=== PATIENT | female | born 1990 | race Caucasian/White ===

== ENCOUNTER 2017-01-24 23:33 | Inpatient (IN) ==
--- NOTE | 2017-01-24 23:56 | ED EKG INTERP ---
EKG Interpretation - EKG Time of EKG reading by physician:: 23:52 EKG Read and Signed by:: Laura Zuniga Jr EKG Interpretation (*Must complete 3 of following elements*): Abnormal ( Possible L atrial enlargement; Inferior infarct, age undetermined) Rate: 130 Rhythm: Sinus tachycardia Attestation - Scribe Verification/Attestation Scribe:: Evaristo Richey Acting as Scribe for:: Laura Zuniga Jr Scribe documention review:: This chart was documented by a scribe and accurately reflects the service the provider performed and the decisions made by the provider.
[2017-01-25] MEDS ORDERED: ZOFRAN ODT ONE (00:43)
[2017-01-25] MEDS ORDERED: ZOFRAN ODT PO ONE (00:43)
[2017-01-25 01:00] LABS: MANUAL DIFF NEEDED? NO
[2017-01-25 01:02] LABS: BASO% 0.1 % (0.0-0.8); EOS# 0.15 X1000 (0.0-0.7); EOS% 1.5 % (0.0-10.0); HEMATOCRIT 42.7 % (37.0-47.0); HEMOGLOBIN 14.2 g/dL (12.0-16.0); IMM GRAN# 0.03 X1000 (0.0-0.04); IMM GRAN% 0.3 % (0.0-0.5); LYMPH% 26.4 % (20.5-51.1); MCH 29.5 PG (27-31); MCHC 33.3 g/dL (33-37); MCV 88.8 FL (81-99); MONO# 0.97 X1000 (0.11-0.59); MONO% 9.9 % (1.7-9.3); MPV 10.4 FL (7.4-10.4); NEUT% 61.8 % (42.2-75.2); PLT 266 X1000 (130-400); RBC 4.81 XMIL (4.2-5.4)
--- NOTE | 2017-01-25 01:05 | PROVIDER DOCUMENTATION ---
HPI-General Adult <Laura Zuniga Jr - Last Filed: 01/25/17 01:43> - General Source: patient - History of Present Illness -Gen Adult Nature of Presenting Problems: Pt is a 26 yof who presents to ER with CC of L foot numbness with onset of 1600. Pt has hx of M.S. and reports that it started as just 1 toe on her L foot become numb, but then her whole foot became numb and she started to experience the "zaal-bic-scbxvry" sensation. Pt also complains of a headache. No further complaints. Location of Pain/Injury: reports: feet (L foot) Pain Radiation: reports: no radiation Quality of Pain: reports: other (numb/[id number]) Severity: reports: moderate Onset/Duration: reports: this afternoon (1600) Timing: reports: still present Context/Activities at Onset: reports: light activity Associated Symptoms: reports: headaches, muscle aches, sensory/motor loss, weakness, trouble walking. denies: anxiety, arm pain, back/neck pain, chest pain, constipation, cough, diaphoresis, diarrhea, dizziness, EENT symptoms, fatigue, fever/chills, genitourinary problems, heartburn, joint pain, loss of appetite, malaise, sinus congestion/drainage, nausea, rash, seizure, shortness of breath, pain with inspiration, swelling/mass in abdomen, syncope, vomiting <Evaristo Richey - Last Filed: 01/25/17 02:33> - General Chief Complaint: Extremity Pain Stated Complaint: LT FT/LEG NUMBNESS Time Seen by Provider: 01/25/17 00:10 Allergies/Adverse Reactions: Patient Allergies Allergy/AdvReac Type Severity Reaction Status Date / Time Sulfa (Sulfonamide Allergy ANAPHYLAXIS Verified 01/25/17 00:23 Antibiotics) Home Medications: Home Medication List Medication Instructions Recorded Confirmed Last Taken Type Dextroamphetamine/Amphetamine 5 mg PO 4XDAY 01/25/17 01/25/17 01/24/17 21:00 History [Adderall 5 mg Tablet] Divalproex E.r. [Depakote ER] 1,000 mg PO QHS 01/25/17 01/25/17 01/24/17 21:00 History Interferon Beta-1B [Betaseron] 25 mcg IM EVERY OTHER DAY 01/25/17 01/25/1701/2417 08:00 History Lacosamide [Vimpat] 200 mg PO BID 01/25/17 01/25/17 01/24/17 21:00 History Levetiracetam [Keppra] 2,000 mg PO DAILY 01/25/17 01/25/17 01/24/17 08:00 History Tolterodine [Detrol] 2 mg PO DAILY 01/25/17 01/25/17 01/24/17 08:00 History Review of Systems - Adult - REVIEW OF SYSTEMS - ADULT Constitutional: denies: chills, fever, fatique, night sweats, weight gain, weight loss Eyes: reports: no symptoms reported Ears, Nose, Mouth & Throat: reports: no symptoms reported Cardiovascular: reports: no symptoms reported Respiratory: reports: no symptoms reported Gastrointestinal: reports: no symptoms reported Genitourinary: reports: no symptoms reported Musculoskeletal: reports: no symptoms reported Integumentary: denies: hives, hair loss, itching, mole changes, nail changes, rash, skin sores/ulcer, skin thickening Neurological: reports: numbness, paresthesia. denies: ataxia, dizziness/vertigo , headache/migraines, loss of balance, seizure, slurred speech, syncope, tremors Psychiatric: reports: no symptoms reported Endocrine: reports: no symptoms reported Hematologic/Lymphatic: reports: no symptoms reported Allergic/Immunologic: reports: no symptoms reported All Other Systems: Reviewed and Negative <Evaristo Richey - Last Filed: 01/25/17 02:33> Past History - Adult - PAST MEDICAL HISTORY-ADULT Review of Records: reports: Nursing Assessment Review, Medications Reviewed Neurological: reports: Multiple Sclerosis - IMMUNIZATION STATUS Childhood Immunizations: See Nurse Assessment Flu Vaccine: See Nurse Assessment <Evaristo Richey - Last Filed: 01/25/17 02:33> Physical Exam-General - PHYSICAL EXAM-ADULT Initial Vital Signs Reviewed: Yes - CONSTITUTIONAL General Appearance: appears well, alert, moderate distress, obese. negative: thin, anxious, lethargic, slow to respond, obtunded, combative - HEAD, EARS, NOSE, MOUTH & THROAT HENMT: normocephalic/atraumatic, moist mucous membranes, normal ENT inspection, TMs normal, pharynx normal. negative: pharyngeal erythema, tonsillar exudate, TM abnormal - NECK Neck: non-tender, full range of motion, supple. negative: C-spine tenderness, limited range of motion, lymphadenopathy - RESPIRATORY Respiratory: chest non-tender, lungs clear, normal breath sounds. negative: respiratory distress, decreased breath sounds, accessory muscle use, wheezing - CARDIOVASCULAR Cardiovascular: normal peripheral pulses, regular rate, rhythm. negative: bradycardia, tachycardia, irregularly irregular - LYMPHATIC Lymphatic: no adenopathy. negative: axilla node tender, cervical node tenderness, inguinal node tender - MUSCULOSKELETAL Back Exam: no CVA tenderness, no vertebral tenderness. negative: CVA tenderness , decreased range of motion, muscle spasm, swelling, vertebral tenderness Extremity: normal range of motion, non-tender, normal gait. negative: deformity , erythema, inflammation, pedal edema, slow capillary refill, swelling, tenderness - SKIN Integumentary: normal color, normal turgor, warm/dry. negative: abrasion(s), laceration(s), swelling, tenderness, warm - NEUROLOGIC Neurologic: grossly normal, sensory deficit (LLE). negative: no motor/sensory deficits, facial droop, focal weakness, motor weakness - PSYCHIATRIC Psych/Mental Status: normal mood/affect, normal thought content, normal thought process, oriented x 3 <Evaristo Richey - Last Filed: 01/25/17 02:33> Progress - PLAN OF CARE/RESULTS Progress/Plan/Lab Results: Vital Signs - 24 hr 01/24/17 23:41 Temperature 98.9 F Pulse Rate 143 H Respiratory 16 Rate Blood Pressure 141/99 O2 Sat by Pulse 100 Oximetry Orders Category Date Time Status ED: Urine Bedside ORDERED Care 01/25/17 01:03 Active HEAD W/O CONTRAST [CT] Stat Exams 01/25/17 00:52 Ordered CBC WITH ELECTRONIC DIFF [HEME] Stat Lab 01/25/17 00:54 Completed COMPREHENSIVE METABOLIC PANEL [CHEM] Stat Lab 01/25/17 00:54 Received Ondansetron Odt [Zofran Odt] Med 01/25/17 00:43 Discontinued 4 mg .ROUTE .STK-MED ONE Ondansetron Odt [Zofran Odt] Med 01/25/17 00:43 Discontinued 4 mg PO NOW ONE EKG [EKG] Stat Ther 01/24/17 23:44 Ordered Laboratory Tests 01/25/17 01/25/17 00:54 00:54 WBC 9.84 RBC 4.81 Hgb 14.2 Hct 42.7 MCV 88.8 MCH 29.5 MCHC 33.3 RDW Std Deviation 16.2 H Plt Count 266 MPV 10.4 Immature Gran % (Auto) 0.3 Neut % (Auto) 61.8 Lymph % (Auto) 26.4 Perkins % (Auto) 9.9 H Eos % (Auto) 1.5 Baso % (Auto) 0.1 Immature Gran # (Auto) 0.03 Neut # (Auto) 6.08 Lymph # (Auto) 2.60 Perkins # (Auto) 0.97 H Eos # (Auto) 0.15 Baso # (Auto) 0.01 Sodium 144 Potassium 4.0 Chloride 106 Carbon Dioxide 24 L Anion Gap 14 BUN 13 Creatinine 0.9 Estimated GFR/1.73 m2 > 60 BUN/Creatinine Ratio 14 Glucose 111 H Calculated Osmolality 288 Calcium 9.9 Total Bilirubin 0.19 L AST 19 ALT 53 H Alkaline Phosphatase 104 Total Protein 6.9 Albumin 4.1 Globulin 2.8 Albumin/Globulin Ratio 1.5 - CT/MRI 1 CT Study: Head Impression: See EMR Report (No intracranial mass, midline shift, hydrocephalus, or acute hemorrhage. Visualizedparanasal sinuses and mastoid air cells normal. Orbits unremarkable. No skull fx) CT Results: Normal noncontrast head CT <Evaristo Richey - Last Filed: 01/25/17 02:33> Departure - Departure Time of Disposition Order: 01:43 Certified Medical Emergency: Emergent <Laura Zuniga Jr - Last Filed: 01/25/17 01:43> - Departure Time of Disposition Order: 02:33 <Evaristo Richey - Last Filed: 01/25/17 02:33> - Departure DIAGNOSIS: Exacerbation of multiple sclerosis Disposition: ADMITTED INPATIENT 09 Condition: Good Referrals: None,PCP [Primary Care Provider] - Attestation - Scribe Verification/Attestation Scribe:: Evaristo Richey Acting as Scribe for:: Laura Zuniga Jr Scribe documention review:: This chart was documented by a scribe and accurately reflects the service the provider performed and the decisions made by the provider. <Evaristo Richey - Last Filed: 01/25/17 02:33> Physician Attestation
[2017-01-25 01:12] LABS: AGAP 14; ALBUMIN 4.1 g/dL (3.5-5.0); ALKALINE PHOSPHATASE 104 U/L (32-104); BUN 13 mg/dL (8-22); CALCIUM 9.9 mg/dL (8.8-10.2); CHLORIDE 106 mmol/L (98-107); COSMO 288; GOT 19 U/L (10-30); GPT 53 U/L (10-36); SODIUM 144 mmol/L (136-145); TCO2 24 mmol/L (25-35); TOTAL BILIRUBIN 0.19 mg/dL (0.20-1.00); TOTAL PROTEIN 6.9 g/dL (6.3-8.3)
[2017-01-25] MEDS ORDERED: ZOFRAN ONE (01:38)
[2017-01-25] MEDS ORDERED: MORPHINE IV ONE (01:43)
[2017-01-25] MEDS ORDERED: ZOFRAN IV ONE (01:43)
[2017-01-25] MEDS ORDERED: MORPHINE IV PRN (01:45)
[2017-01-25] MEDS ORDERED: DILAUDID IV ONE (02:34)
[2017-01-25] MEDS ORDERED: SOLU-MEDROL 1,000 MG in NS 100 ML IV SCH (03:00)
[2017-01-25] MEDS: ZOFRAN IV PRN ×4 (03:36→19:43)
--- NOTE | 2017-01-25 05:16 | HISTORY AND PHYSICAL ---
CHIEF COMPLAINT: Left foot numbness. HISTORY OF PRESENTING ILLNESS: This 26-year-old female with a history of multiple sclerosis. Had presented to the emergency department with a 1-day history of having left foot numbness. She states that she could not feel her foot and seemed to be similar to an exacerbation that she had about a month ago where she was hospitalized at [facility]. Patient is apparently seeing a physician, Dr. Travis of Neurology, who is treating her multiple sclerosis. The patient is evaluated in the ER and due to her presenting symptoms, it was thought that she would need hospitalization for further management. At the time of my examination, she denied any nausea, vomiting, diarrhea, fever, chills, chest pain, shortness of breath, hemoptysis, melena, weight changes, but complained of left foot numbness and headache. PAST MEDICAL HISTORY: Includes PTSD, pseudotumor cerebri, and multiple sclerosis. PAST SURGICAL HISTORY: None. ALLERGIES: Sulfa. CURRENT MEDICATIONS: As in the MAR. SOCIAL HISTORY: She denies any history of smoking. Admits to social alcohol use. Denies any illicit drug use. FAMILY HISTORY: No history of coronary disease. REVIEW OF SYSTEMS: Twelve point systems reviewed and is as in the history of present illness. Other systems negative. PHYSICAL EXAMINATION: GENERAL: Cooperative, friendly female. She is resting comfortably now. VITAL SIGNS: Temperature 98.9 degrees, pulse 142, respiration 16, blood pressure 141/99. HEENT: Atraumatic, normocephalic. Extraocular movements intact. Pupils equal, round, reactive to light and accommodation. NECK: Supple. CHEST: Clear to auscultation. CARDIOVASCULAR: Regular rhythm. ABDOMEN: Soft, nontender. Positive bowel sounds. EXTREMITIES: No edema. NEUROLOGICAL: She is awake, alert, oriented x3. Strength 4/5 in the left lower extremity, 5/5 in all extremities. GENITOURINARY: No bladder distention. SKIN: Warm. LABORATORIES AND STUDIES: WBC 9.84, hemoglobin 14.2, hematocrit 42.7, platelets 266,000. Sodium 144, potassium 4.0, chloride 106, CO2 24, BUN is 13, creatinine 0.9, glucose is 111. ASSESSMENT: A 26-year-old female with a history of multiple sclerosis, who presents to the emergency department with 1-day history of having left foot numbness. Patient's symptoms consistent with possible multiple sclerosis exacerbation. She will need hospitalization for further management. 1. Acute multiple sclerosis exacerbation. PLAN: 1. We will admit patient to medical floor. 2. We will start patient on Solu-Medrol 1000 mg IV. 3. We will consult Neurology. 4. We will continue to follow and reassess.
--- NOTE | 2017-01-25 05:44 | EKG Report ---
Test Performed on : 01/24/2017 11:50:41 PM Test Reason : TACHYCARDIA Blood Pressure : / mmHG Vent. Rate : 130 BPM Atrial Rate : 130 BPM P-R Int : 144 ms QRS Dur : 078 ms QT Int : 292 ms P-R-T Axes : 044 -02 025 degrees QTc Int : 429 ms Sinus tachycardia. Possible Left atrial enlargement Inferior infarct , age undetermined Abnormal ECG No previous ECGs available Unconfirmed Result
[2017-01-25] MEDS ORDERED: DILAUDID IV PRN (06:10)
--- NOTE | 2017-01-25 08:03 | Diag Imaging Result Document ---
PROCEDURE NAME: HEAD W/O CONTRAST - 01/25/2017 CT HEAD WITHOUT CONTRAST: TECHNIQUE: A dose reduction protocol was used. No comparison exam. FINDINGS: There is no evidence of hemorrhage, mass effect, midline shift, or hydrocephalus. There is mild ventricular asymmetry compatible with normal variation. There is no evidence of infarct although acute infarcts may not be immediately visible. Visualized portions of paranasal sinuses appear clear. IMPRESSION: No visible acute intracranial abnormality. No hemorrhage or mass effect. A Real [facility] physician provided preliminary results at 1:32 a.m. on 01/25/2017.
[2017-01-25] MEDS ORDERED: SOLU-MEDROL IV SCH (09:00)
[2017-01-25] MEDS: DILAUDID IV PRN ×4 (10:35→23:50)
[2017-01-25] MEDS: NORCO-5 PO PRN ×2 (12:19→19:43)
--- NOTE | 2017-01-25 13:38 | CONSULTATION ---
DATE OF CONSULTATION: 01/25/2017 HISTORY OF PRESENT ILLNESS: Ms. Lorenzo is 26 years old, and she has diagnosis of multiple sclerosis. History from the patient with no corroborating documents is that she had left- sided weakness involving leg more than arm a few months ago. She was treated with IV steroids last month and was improved. She had an oral steroid dose for about 2 weeks after that, and finished her oral prednisone about 2 weeks ago. As she was regaining left- sided power, following completion of the course of IV steroids, she noticed gradually improving strength in the left limbs, and then she noticed numbness involving the left great toe. That numbness persisted. Yesterday, very abruptly, in a matter of seconds, she noticed numbness involving the entire left foot. That has persisted since yesterday. She did not notice definite increased left-sided weakness associated with the recent numbness. She has had some urinary urgency and frequency and occasional bladder accidents. She has not had significant right-sided symptoms. She has not noticed any vision problems, speech difficulty, swallowing difficulty. She had workup and diagnosis of MS. I do not have those records. She started Betaseron about a month ago, by her report, and she has tolerated that. She specifically denies significant depression. She completed her oral steroids a few weeks ago as mentioned above. OTHER MEDICINES: Levetiracetam, Vimpat, divalproex, Detrol, Adderall. WORKUP: Workup here includes noncontrast CT of the head reported unremarkable. She has been afebrile. Systolic blood pressures ranged 120s to 140s. PHYSICAL EXAMINATION: General: On exam, Ms. Lorenzo is awake, alert, attentive. She seems appropriate. She has good power consistently in the right limbs. She demonstrates inconsistent power in testing the left limbs. She was able to show almost no power in voluntary left foot dorsiflexion and plantar flexion initially, but with repeated testing and distraction, she eventually showed at least 4/5 power there. She did well on [id number]-in-[id number] testing bilaterally. She reports diminished pinprick appreciation over the left foot in a mostly stocking pattern, but the deficit may be a little bit greater along the medial aspect of the lower leg compared to the lateral aspect. She has a more minor deficit to pinprick appreciation over the entire left trunk, arm, proximal leg, extending to about the neck. She reports complete absence of proprioception at the left great toe, even when I move her toe enough to move her entire leg and the bed moves. She has good proprioception in the right great toe. I did not test her gait. Reflexes are 2+ at the ankles and knees symmetrically. Plantar response is silent bilaterally. She has full visual vallejo tested by confrontational finger counting. Extraocular movements are full. Facial motility is symmetric. Gag is intact. Tongue is midline. She can hear. IMPRESSION: Subjective left lower leg numbness, less prominent left limb and trunk numbness. The findings on motor exam are too equivocal to be certain. I do not have report of previous MRI. She has started a course of intravenous steroids here with methylprednisolone 1000 mg daily, first dose overnight, and she has tolerated that. I encouraged her to get better and I hope she will be able to get back to see Dr. Root in his office soon. She reports she has an appointment there within a month. Thanks for asking me to see Ms. Lorenzo. [facility]
[2017-01-25] MEDS: HUMULIN R SUBQ SCH ×2 (16:54→20:54)
[2017-01-25] MEDS: KEPPRA XR PO SCH (20:52)
[2017-01-25] MEDS: SOLU-MEDROL 1,000 MG in NS 100 ML IV SCH (20:53)
[2017-01-25] MEDS: DEPAKOTE ER PO SCH (20:53)
[2017-01-25] MEDS: VIMPAT PO SCH (20:53)
[2017-01-26] MEDS: ZANAFLEX PO SCH ×2 (00:19→07:18)
[2017-01-26] MEDS: ZOFRAN IV PRN ×3 (05:10→17:51)
[2017-01-26] MEDS: DILAUDID IV PRN ×3 (05:10→17:51)
[2017-01-26] MEDS: HUMULIN R SUBQ SCH ×4 (07:18→23:34)
[2017-01-26 07:28] LABS: BASO% 0.1 % (0.0-0.8); HEMATOCRIT 36.2 % (37.0-47.0); HEMOGLOBIN 12.3 g/dL (12.0-16.0); IMM GRAN# 0.04 X1000 (0.0-0.04); IMM GRAN% 0.3 % (0.0-0.5); LYMPH# 1.26 X1000 (1.2-3.4); LYMPH% 8.2 % (20.5-51.1); MANUAL DIFF NEEDED? YES; MCH 29.9 PG (27-31); MCV 88.1 FL (81-99); MONO# 0.26 X1000 (0.11-0.59); MONO% 1.7 % (1.7-9.3); MPV 10.9 FL (7.4-10.4); NEUT% 89.7 % (42.2-75.2); PLT 244 X1000 (130-400); RBC 4.11 XMIL (4.2-5.4)
[2017-01-26 07:29] LABS: AGAP 14; ALBUMIN 3.4 g/dL (3.5-5.0); ALKALINE PHOSPHATASE 89 U/L (32-104); BUN 15 mg/dL (8-22); CALCIUM 9.4 mg/dL (8.8-10.2); CHLORIDE 103 mmol/L (98-107); COSMO 285; GOT 9 U/L (10-30); GPT 33 U/L (10-36); POTASSIUM 4.3 mmol/L (3.5-5.1); SODIUM 140 mmol/L (136-145); TCO2 23 mmol/L (25-35); TOTAL BILIRUBIN 0.21 mg/dL (0.20-1.00); TOTAL PROTEIN 5.8 g/dL (6.3-8.3)
[2017-01-26 08:06] LABS: BANDS 4 % (0-1); LYMPHS 14 % (21-51)
[2017-01-26] MEDS: NORCO-5 PO PRN ×2 (08:35→20:53)
[2017-01-26] MEDS: DETROL PO SCH (08:36)
[2017-01-26] MEDS: VIMPAT PO SCH ×2 (08:40→20:53)
[2017-01-26] MEDS ORDERED: PATIENT'S OWN MED IM SCH (09:00)
--- NOTE | 2017-01-26 09:24 | PROGRESS NOTE ---
DATE: 01/26/2017 Ms. Lorenzo reports no significant improvement but she is certain nothing is any worse today. She continues to report numbness in the left foot. I did not examine her at the bedside today. She has received 2 doses of IV Solu-Medrol and has tolerated that. She reports having significant clinical response to IV Solu-Medrol last month and we hope she will do well this time. No new suggestion from neurologic standpoint. As long as she is clinically stable and improving, no need to repeat neurologic work up which has been recent and extensive. [facility]
[2017-01-26] MEDS ORDERED: ATIVAN IV ONE (10:21)
--- NOTE | 2017-01-26 11:02 | PROGRESS NOTE ---
DATE: 01/26/2017 SUBJECTIVE: Ms. Lorenzo is a 26-year-old, female. She was currently sleeping when entering the room. She awoke easily. She states that the pain is better. She is still having a good bit of cramping in her left thigh, left calf. States that the numbness is now only in her foot. She can feel that she is starting to have an improvement. Reviewing her pain medication administration, it seems that she did take Starford about 8:30 and Dilaudid around 5:10 this morning. It does appear that she is taking Dilaudid every 6 hours. We will consider decreasing the pain medication administration. She states no issues with bowel or bladder control. No other issues with numbness in the left arm or left face. No new complaints. OBJECTIVE: Vital Signs: Temperature 98.3 degrees, heart rate 91, respiratory rate 22, blood pressure 138/79, O2 saturation 94% on room air. General: Ms. Lorenzo is a 26- year-old, female in no acute distress. Able to answer all questions appropriately. Cardiovascular: S1, S2. Regular rate and rhythm. No rubs, gallops, or murmurs. Pulmonary: Clear to auscultate bilateral breath sounds. No accessory muscle use or work of breathing noted. GI: Soft, nontender, nondistended. Positive bowel sounds x4. Extremities: Numbness in the left foot. There are +2 dorsalis pedal pulses and radial pulses. Neurologic: A and O x4. Moves all extremities equally. Laboratory Data: White blood cells, 15,000, hemoglobin 12, hematocrit 36, platelet count 244,000. Sodium 140, potassium 4.3, BUN 15, creatinine 0.8, glucose 178, calcium 9.4, phosphorus 3.1, magnesium 2. Total bilirubin 0.21, AST 9, ALT 33, albumin 3.4. TSH 0.03. Imaging: MRI with and without contrast has been ordered of the spine and brain for lesions of multiple sclerosis. ASSESSMENT AND PLAN: 1. Multiple sclerosis with exacerbation. Symptoms are improving. She is getting daily doses of high-dose Solu-Medrol which seems to be helping with symptoms. She still had some symptoms of numbness in the left foot and cramps in her legs but the pain is improving, although she is taking as needed medications as if they were scheduled. Neurology is following. MRI is pending. 2. Leukocytosis. This is reactive secondary to high-dose steroid administration. 3. Hyperglycemia. She does not have a history of diabetes so this is secondary to the high dose administration of Solu-Medrol. She is getting patterned blood glucoses and sliding scale insulin. We will order a hemoglobin A1c for in the morning. 4. TSH is low. We will order a T4. 5. Deep venous thrombosis prophylaxis, sequential compression devices. 6. Gastrointestinal prophylaxis. We will add a proton pump inhibitor. Dictated by MARGARITA Galeas for Lawrence Ybarra MD Addendum: I have evaluated and examined the patient in conjunction to the [facility] and agreed with her assessments and plans. [facility]
[2017-01-26] MEDS: ROBAXIN PO SCH ×2 (12:11→18:56)
--- NOTE | 2017-01-26 16:50 | Diag Imaging Result Document ---
PROCEDURE NAME: MRI BRAIN W W/O CONTRAST - 01/25/2017 MRI BRAIN WITHOUT AND WITH INTRAVENOUS CONTRAST: COMPARISON: Head CT, 01/25/2017. FINDINGS: There is no restricted diffusion. The ventricles and sulci are normal in size and contour. No intracranial mass or hemorrhage. No area of abnormal signal. No abnormal contrast enhancement. IMPRESSION: Negative exam.
--- NOTE | 2017-01-26 16:50 | Diag Imaging Result Document ---
PROCEDURE NAME: MRI C SPINE W/WO CONTRAST - 01/26/2017 MRI CERVICAL SPINE WITHOUT AND WITH INTRAVENOUS CONTRAST: COMPARISON: None. FINDINGS: Alignment is anatomic. Vertebral body heights and intervertebral disk spaces are preserved. The brainstem and cervical cord are normal. No abnormal signal. No abnormal contrast enhancement. IMPRESSION: Negative exam.
--- NOTE | 2017-01-26 16:51 | Diag Imaging Result Document ---
PROCEDURE NAME: MRI THORACIC SPINE W/WO CONTR - 01/26/2017 MRI THORACIC SPINE WITHOUT AND WITH INTRAVENOUS CONTRAST: COMPARISON: None. FINDINGS: Alignment is anatomic. No fracture or subluxation. The thoracic cord is normal. No abnormal signal. No abnormal contrast enhancement. IMPRESSION: Negative exam.
--- NOTE | 2017-01-26 16:54 | Diag Imaging Result Document ---
PROCEDURE NAME: MRI LUMBAR SPINE W/WO CONTRAST - 01/26/2017 MRI LUMBAR SPINE WITHOUT AND WITH INTRAVENOUS CONTRAST: COMPARISON: None. FINDINGS: Alignment is anatomic. No fracture or subluxation. The conus is normal. No abnormal contrast enhancement. No abnormal signal. IMPRESSION: Negative exam.
[2017-01-26] MEDS: DEPAKOTE ER PO SCH (20:53)
[2017-01-26] MEDS: SOLU-MEDROL 1,000 MG in NS 100 ML IV SCH (20:54)
[2017-01-26] MEDS: KEPPRA XR PO SCH (21:12)
[2017-01-26] MEDS ORDERED: DILAUDID IV ONE (21:30)
[2017-01-27] MEDS: DILAUDID IV PRN ×3 (00:54→13:58)
[2017-01-27] MEDS: ZOFRAN IV PRN ×2 (00:58→13:59)
[2017-01-27] MEDS: PRILOSEC PO SCH ×2 (04:01→06:17)
[2017-01-27] MEDS: NORCO-5 PO PRN ×3 (04:01→15:49)
[2017-01-27] MEDS: HUMULIN R SUBQ SCH ×2 (06:17→12:55)
[2017-01-27 07:15] LABS: HEMATOCRIT 36.8 % (37.0-47.0); IMM GRAN# 0.05 X1000 (0.0-0.04); IMM GRAN% 0.3 % (0.0-0.5); LYMPH% 5.4 % (20.5-51.1); MANUAL DIFF NEEDED? YES; MCH 29.1 PG (27-31); MCHC 32.6 g/dL (33-37); MCV 89.1 FL (81-99); MONO# 0.33 X1000 (0.11-0.59); MONO% 1.8 % (1.7-9.3); MPV 11.3 FL (7.4-10.4); NEUT% 92.5 % (42.2-75.2); PLT 216 X1000 (130-400); RBC 4.13 XMIL (4.2-5.4)
[2017-01-27 07:18] VITALS: BP 131/94
[2017-01-27 07:19] LABS: AGAP 15; ALBUMIN 3.3 g/dL (3.5-5.0); ALKALINE PHOSPHATASE 90 U/L (32-104); BUN 22 mg/dL (8-22); CALCIUM 9.3 mg/dL (8.8-10.2); CHLORIDE 103 mmol/L (98-107); COSMO 289; GOT 9 U/L (10-30); GPT 27 U/L (10-36); POTASSIUM 4.3 mmol/L (3.5-5.1); SODIUM 141 mmol/L (136-145); TCO2 23 mmol/L (25-35); TOTAL BILIRUBIN 0.16 mg/dL (0.20-1.00); TOTAL PROTEIN 5.6 g/dL (6.3-8.3)
[2017-01-27 07:51] LABS: LYMPHS 10 % (21-51)
--- NOTE | 2017-01-27 09:02 | PROGRESS NOTE ---
DATE: 01/27/2017 PATIENT LOCATION: Room 379B. Ms. Lorenzo is awake and alert. She reports no definite improvement in sensation in the left leg but she has had significant decrease in the uncomfortable tingling in the left leg. She has tolerated IV steroids, 3rd dose given last night. We discussed the possibility that she might complete this course as an outpatient. I encouraged her to be aggressive with her recovery and to be very careful with gait and activities. If not already ordered, we could consider physical therapy here. I told her to be in touch with Dr. Root when she is discharged. No new suggestion from a neurologic standpoint today.
[2017-01-27] MEDS: VIMPAT PO SCH (09:48)
[2017-01-27] MEDS: ROBAXIN PO SCH ×2 (09:48→12:55)
[2017-01-27] MEDS: DETROL PO SCH (09:48)
--- NOTE | 2017-01-27 11:12 | PROGRESS NOTE ---
DATE: 01/27/2017 SUBJECTIVE: Ms. Lorenzo's a 26-year-old, female. She is in no acute distress. She was sleeping with snoring respirations that were normal. Easily awoke. States that she still has numbness in her left foot. Still has pretty significant muscle spasms that come and go. Is requesting something different other than Zanaflex or Robaxin for this. She also wants to discuss her pain medication regimen for when she goes home. She also states that she would like to have a PICC line to be able to manage her on IV steroid dosing at home. Today will be day 4 of 5 doses of IV steroids and she should be able to go home maybe at a later date, she can do IV steroids, but she will need to discuss this with her primary neurologist who manages her multiple sclerosis. OBJECTIVE: Vital Signs: Temperature 97.8, heart rate 78, respiratory rate 18, blood pressure 131/94, O2 saturation 95% on room air. General: Ms. Lorenzo is a 26-year-old, female in no acute distress. Able to answer all questions appropriately. Cardiovascular: S1, S2. Regular rate and rhythm. No rubs, gallops, murmurs. Pulmonary: Clear to auscultation. Bilateral breath sounds. No accessory muscle use or work of breathing noted. GI: Soft, nontender, nondistended. Positive bowel sounds x4. Extremities: Left foot numbness. Muscle spasms throughout the left leg that she complains of. She has got +2 dorsalis pedal pulses. +2 radial pulses. Neuro: A and O x4. Moves all extremities equally. LABORATORY DATA: White blood cells 18,000, hemoglobin 12, hematocrit 36, platelet count 216. Sodium 141, potassium 4.3, BUN 22, creatinine 0.9. Glucose 183. Total bilirubin 0.16. AST 9, ALT 27, albumin 3.3. TSH 0.03. Free T4 is 1.45. IMAGING: MRI of the brain and spine showed negative exam. No significant lesions for MS. ASSESSMENT AND PLAN: 1. Multiple sclerosis with exacerbations. Symptoms are somewhat improving. She is getting high- dose steroids. Today will be day 4 or 5 before she can go home. Still numbness of the left foot with cramps in her left leg, which she is requesting for a change in her muscle relaxant medication. Also wants to discuss pain medication regimen at home and wants to discuss getting IV steroids at home. Her MRI apparently does not show any significant lesions. 2. Leukocytosis. This is reactive secondary to high-dose steroids. She is afebrile. 3. Hyperglycemia. Hemoglobin A1c is normal at 5.0. Will continue sliding scale insulin with pattern blood glucoses while on IV high-dose steroids. 4. Subclinical hyperthyroidism. TSH is low, but her T4 is normal. No treatment for now. 5. Deep venous thrombosis prophylaxis. Sequential compression devices. 6. Gastrointestinal prophylaxis. Proton pump inhibitor. Dictated by MARGARITA Galeas for Lawrence Ybarra MD
[2017-01-27] MEDS ORDERED: SOLU-MEDROL IV ONE (13:47)
[2017-01-27] MEDS ORDERED: SOLU-MEDROL 1,000 MG in NS 100 ML IV ONE (14:00)
--- NOTE | 2017-01-27 18:25 | DISCHARGE SUMMARY ---
ADMISSION DATE: 01/24/2017 DISCHARGE DATE: 01/27/2017 DISCHARGE DIAGNOSES: 1. Questionable multiple sclerosis flare. 2. Chronic pain. 3. Morbid obesity. 4. History of multiple sclerosis. 5. History of seizure. 6. History of attention deficit hyperactivity disorder. DISCHARGE MEDICATIONS: 1. Adderall 5 mg 4 times a day as needed. 2. Depakote 1000 mg at bedtime. 3. Detrol 2 mg p.o. daily. 4. Interferon beta-1b 25 mcg subcutaneous every other day. 5. Keppra 2000 mg p.o. at bedtime. 6. Vimpat 200 mg b.i.d. 7. Ringgold 5 one tablet p.o. every 4 hours as needed for pain. 8. Robaxin 750 one tablet 3 times a day as needed for muscle spasm. CONSULTATION: Neurology was consulted. Dr. Rashid saw the patient and recommended to put the patient on high dose steroid. PROCEDURES: None significant. LABORATORY AND IMAGING: MRI of the of the brain is essentially normal, there is no evidence of white matter disease. MRI of the thoracic spine was also normal. MRI of the lumbar spine was also normal. MRI of cervical spine was also normal. HOSPITAL COURSE: The patient is a 26-year-old, morbidly obese, white female admitted to the hospital for left leg tingling and weakness. The patient reported that she is having a history of MS and been manage by Dr. Root in [place], and is on interferon beta-1b every other day. The patient presented to the hospital with lower extremity tingling and weakness as well as pain. The patient was admitted to the hospital service with Neurology consult, Dr. Rashid, who saw the patient and recommended to put the patient on 1 g of Solu-Medrol daily for 5 days. We finished her 4 doses of Solu-Medrol and the patient adamant about going home. Her main complaint is pain, she is asking for pain medication so she can manage her pain until she has a chance to see her pain doctors in February. From my standpoint, with the MRIs that were normal, will give her only a few days' worth of muscle relaxant and Ringgold. We will give her 1 more dose of Solu-Medrol today and will discharge the patient home. The patient was glad to go home since she is now able to get a prescription for pain medication. I advised the patient to use cautiously, I will not renew any more additional pain medication. PHYSICAL EXAMINATION: Vital Signs: At discharge her vital signs are blood pressure 131/94, pulse of 78, respiration 18, temperature 97.8 degrees, saturations 95% in room air. General appearance: Morbidly obese, white female in no acute distress. HEENT: Anicteric sclerae. Clear conjunctivae. Neck: Supple. No JVD. No bruit. Cardiovascular: S1, S2. Normal rate and rhythm. No murmur, rubs, or gallops. Pulmonary: Clear to auscultation bilaterally. GI: Soft, nontender, nondistended. Normoactive bowel sounds. Musculoskeletal: No clubbing, cyanosis, or edema. PLAN: Wed will discharge the patient home. CONDITION: Stable and improving. ACTIVITY: As tolerated. FOLLOWUP: The patient can follow up with her neurologist in 1-2 weeks. TOTAL TIME DISCHARGING PATIENT: 35 minutes.
== END 2017-01-27 16:23 | disposition home or self-care (01) | DRG 60 ==
LOC: ED 23:33 → DIRADM 23:41 → 3N 01-25 03:57 → UNDOADMIN 01-25 03:57 → 3N 01-25 21:33
PROVIDERS: ATTEND Internal Medicine
DX: G35 Multiple sclerosis (principal); R56.9 Unspecified convulsions; E66.01 Morbid (severe) obesity due to excess calories; E05.90 Thyrotoxicosis, unspecified without thyrotoxic crisis or storm; R73.9 Hyperglycemia, unspecified; D72.829 Elevated white blood cell count, unspecified; T38.0X5A Adverse effect of glucocorticoids and synthetic analogues, initial encounter; G89.29 Other chronic pain; F90.9 Attention-deficit hyperactivity disorder, unspecified type; Z79.899 Other long term (current) drug therapy; Z68.34 Body mass index [BMI] 34.0-34.9, adult
CPT/HCPCS: 36415; 70450; 70553; 72156; 72157; 72158; 80053; 81025; 82948; 83036; 83735; 84100; 84439; 84443; 85025; 93005; 96365; 96375; 96376; A9579; J1170; J2060; J2270; J2405; J2930; 97116-GP

== ENCOUNTER 2017-01-31 21:18 | Inpatient (IN) | payer OTHER ==
--- NOTE | 2017-01-31 22:06 | PROVIDER DOCUMENTATION ---
HPI-General Adult - General Source: patient - History of Present Illness -Gen Adult Nature of Presenting Problems: 26 year old F presents to the ED with a cc of a MS flare up. PT states that she is being treated by Dr. Root in [place]. Pt was admitted to the hospital on and discharge on 01/27 for the same. Pt states that she thought she was getting better but states that it has only got worse. PT states that the Wingate she was prescribed is not helping with her pain. PT also c/o numbness and weakness to left leg and foot. Pt states that she has not been able to follow up with Dr. Root since being discharged. Location of Pain/Injury: reports: lower extremity, feet Pain Radiation: reports: no radiation Severity: reports: mild Onset/Duration: reports: 6 days ago Timing: reports: still present Modifying Factors: improves with: nothing Associated Symptoms: reports: weakness, other (numbness) Similar Symptoms Previously?: Yes Recently seen or treated by another doctor?: Yes <Kimberlee Chung - Last Filed: 01/31/17 22:35> <Phu Ma - Last Filed: 01/31/17 22:42> - General Chief Complaint: Edema Stated Complaint: MS FLARE UP Time Seen by Provider: 01/31/17 21:39 Allergies/Adverse Reactions: Patient Allergies Allergy/AdvReac Type Severity Reaction Status Date / Time Sulfa (Sulfonamide Allergy Severe ANAPHYLAXIS Verified 01/31/17 21:27 Antibiotics) Home Medications: Home Medication List Medication Instructions Recorded Confirmed Last Taken Type Dextroamphetamine/Amphetamine 5 mg PO 4XDAY PRN PRN 01/25/17 01/31/17 01/24/17 21:00 History [Adderall 5 mg Tablet] Divalproex E.r. [Depakote ER] 1,000 mg PO QHS 01/25/17 01/31/17 01/30/17 History Interferon Beta-1B [Betaseron] 25 mcg IM EVERY OTHER DAY 01/25/17 01/31/1701/30 History Lacosamide [Vimpat] 200 mg PO BID 01/25/17 01/31/17 01/31/17 12:00 History Levetiracetam E.r. [Keppra Xr] 2,000 mg PO HS 01/25/17 01/31/17 01/30/17 History Tolterodine [Detrol] 2 mg PO DAILY 01/25/17 01/31/17 01/31/17 08:00 History Hydrocodone/APAP 5 mg/325 mg 1 each PO Q4H PRN PRN #24 tablet 01/27/17 01/31/17 01/31/17 12:00 Rx [Wingate-5] Methocarbamol [Robaxin] 750 mg PO TID PRN #21 tablet 01/27/17 01/31/17 01/31/17 12:00 Rx Review of Systems - Adult - REVIEW OF SYSTEMS - ADULT Constitutional: denies: chills, fever Eyes: reports: no symptoms reported Ears, Nose, Mouth & Throat: reports: no symptoms reported Cardiovascular: denies: chest pain, palpitations Respiratory: denies: cough, shortness of breath Gastrointestinal: denies: abdominal pain, nausea, vomiting Genitourinary: reports: no symptoms reported Musculoskeletal: reports: muscle aches. denies: muscle weakness Integumentary: denies: skin sores/ulcer, skin thickening Neurological: reports: numbness, paresthesia Psychiatric: reports: no symptoms reported Endocrine: reports: no symptoms reported Hematologic/Lymphatic: reports: no symptoms reported Allergic/Immunologic: reports: no symptoms reported All Other Systems: Reviewed and Negative <Kimberlee Chung - Last Filed: 01/31/17 22:35> Past History - Adult - PAST MEDICAL HISTORY-ADULT Review of Records: reports: Nursing Assessment Review, Medications Reviewed Major Childhood Illnesses: reports: denies history Neurological: reports: Multiple Sclerosis, Seizures/Epilepsy Psychiatric: reports: ptsd - PRIOR SURGERIES/PROCEDURES Surgical/Procedure History: reports: - IMMUNIZATION STATUS Childhood Immunizations: See Nurse Assessment Flu Vaccine: See Nurse Assessment - SOCIAL HISTORY Smoking: cigarettes, less than 1 pack/day Provider spent 3-5 mins advising pt. on dangers of tobacco.: Discussed manners to quit use, and f/u contacts for add'l counseling. Substance Use: none/never Alcohol Use Frequency: never <Kimberlee Chung - Last Filed: 01/31/17 22:35> Physical Exam-General - PHYSICAL EXAM-ADULT Initial Vital Signs Reviewed: Yes - CONSTITUTIONAL General Appearance: appears well, alert, no apparent distress - RESPIRATORY Respiratory: chest non-tender, lungs clear, normal breath sounds - CARDIOVASCULAR Cardiovascular: normal peripheral pulses, regular rate, rhythm, no edema - GASTROINTESTINAL (ABDOMEN) Abdominal Exam: normal bowel sounds, non tender, soft - MUSCULOSKELETAL Extremity: normal inspection DTR: knee (R): 0, knee (L): 0 - SKIN Integumentary: normal color, normal turgor, warm/dry - NEUROLOGIC Neurologic: motor weakness (bilateral lower extremity) <Kimberlee Chung - Last Filed: 01/31/17 22:35> Progress - CONSULTS/PCP/HOSPITALIST Notification #1 *Consult/PCP/Hospitalist*: Dr. Sky Time Discussed: 22:38 Consult Disposition: Will see in ED, Admit <Kimberlee Chung - Last Filed: 01/31/17 22:35> Departure <Kimberlee Chung - Last Filed: 01/31/17 22:35> - Departure Time of Disposition Order: 22:41 Certified Medical Emergency: Emergent <Phu Ma - Last Filed: 01/31/17 22:42> - Departure DIAGNOSIS: Multiple sclerosis Disposition: HOME 01 Condition: Good Attestation - Scribe Verification/Attestation Scribe:: Kimberlee Chung Acting as Scribe for:: Phu Ma Scribe documention review:: This chart was documented by a scribe and accurately reflects the service the provider performed and the decisions made by the provider. <Kimberlee Chung - Last Filed: 01/31/17 22:35> Physician Attestation
[2017-01-31 23:24] LABS: MANUAL DIFF NEEDED? NO; URINE CULTURE NEEDED? NO; URINE MICRO REVIEW NEEDED? NO; URINE SOURCE CLEAN CATCH
[2017-01-31 23:26] LABS: BASO% 0.2 % (0.0-0.8); EOS% 0.6 % (0.0-10.0); HEMATOCRIT 42.1 % (37.0-47.0); IMM GRAN# 0.25 X1000 (0.0-0.04); IMM GRAN% 1.5 % (0.0-0.5); LYMPH# 3.56 X1000 (1.2-3.4); LYMPH% 20.9 % (20.5-51.1); MCH 29.4 PG (27-31); MCHC 33.3 g/dL (33-37); MCV 88.4 FL (81-99); MONO# 0.62 X1000 (0.11-0.59); MONO% 3.6 % (1.7-9.3); MPV 11.1 FL (7.4-10.4); NEUT% 73.2 % (42.2-75.2); PLT 233 X1000 (130-400); RBC 4.76 XMIL (4.2-5.4)
[2017-01-31 23:27] LABS: BILIRUBIN URINE NEGATIVE (NEGATIVE); BLOOD URINE NEGATIVE (NEGATIVE); COLOR YELLOW; GLUCOSE URINE NEGATIVE (NEGATIVE); LEUKOCYTES URINE NEGATIVE (NEGATIVE); NITRITE URINE NEGATIVE (NEGATIVE); PH URINE 7.5; PROTEIN URINE NEGATIVE (NEGATIVE); SP GRAVITY URINE 1.013; TURBIDITY URINE CLEAR (CLEAR); UROBILINOGEN URINE NORMAL (NORMAL)
[2017-01-31 23:29] LABS: UR EPITHELIAL CELLS <10 /HPF (<10); URINE BACTERIA 1+ /HPF; URINE RBC <10 /HPF (<10); URINE WBC <10 /HPF (<10)
[2017-01-31 23:46] LABS: AGAP 14; ALBUMIN 3.9 g/dL (3.5-5.0); ALKALINE PHOSPHATASE 123 U/L (32-104); BUN 17 mg/dL (8-22); CALCIUM 9.2 mg/dL (8.8-10.2); CHLORIDE 97 mmol/L (98-107); COSMO 280; GOT 15 U/L (10-30); GPT 26 U/L (10-36); POTASSIUM 4.2 mmol/L (3.5-5.1); SODIUM 140 mmol/L (136-145); TCO2 29 mmol/L (25-35); TOTAL BILIRUBIN 0.17 mg/dL (0.20-1.00); TOTAL PROTEIN 6.6 g/dL (6.3-8.3)
[2017-01-31] MEDS ORDERED: ZOFRAN IV ONE (23:49)
[2017-02-01] MEDS ORDERED: DILAUDID IV PRN (01:13)
[2017-02-01] MEDS: DILAUDID IV PRN ×6 (04:08→23:23)
--- NOTE | 2017-02-01 06:08 | HISTORY AND PHYSICAL ---
CHIEF COMPLAINT: Bilateral lower extremity weakness. HISTORY OF PRESENTING ILLNESS: A 26-year-old female with a history of multiple sclerosis, seizures and PTSD apparently was just discharged from hospital a few days back after treatment for an acute exacerbation of her multiple sclerosis. She presented with complaints that she is unable to walk. Her legs a weak and wobbly and she not receive her full treatment, she states. She was evaluated in the ER. She was unable to ambulate. She is having a moderate amount of discomfort on her legs and due to her presenting symptoms, it was thought that we would place her in for observation for further evaluation and management. At the time of my examination, she had denied any headache, visual changes, fevers, chills, chest pain, shortness of breath, hemoptysis, melena, or any weight changes but complained of bilateral lower extremity weakness and pain. PAST MEDICAL HISTORY: Includes multiple sclerosis, seizures, PTSD. PAST SURGICAL HISTORY: None. ALLERGIES: Sulfa. CURRENT MEDICATIONS: As listed in MAR. SOCIAL HISTORY: Denies any history of smoking. Admits to social alcohol use. Denies any illicit drug use. FAMILY HISTORY: No history of coronary disease. REVIEW OF SYSTEMS: Twelve point review of systems is as in HPI. Other systems negative. PHYSICAL EXAMINATION: GENERAL: Cooperative, friendly female. She is resting comfortably. VITAL SIGNS: Temperature 97.8 degrees, pulse 125, respiration 18, blood pressure 142/92. HEENT: Atraumatic, normocephalic. Extraocular movements intact. PERRLA. NECK: Supple. CHEST: Clear to auscultation. CARDIOVASCULAR: Regular rate and rhythm. ABDOMEN: Soft. Positive bowel sounds. EXTREMITIES: Diffuse tenderness on lower extremities. : No bladder distention. NEURO: She is awake, alert, oriented x3. Speech is intact. SKIN: Warm. LABORATORIES AND STUDIES: WBC 17.02, hemoglobin 14.0, hematocrit 42.1, platelets is 233,000. Sodium 140, potassium 4.2, chloride 97, CO2 29, BUN is 17, creatinine 0.7, glucose is 83. ASSESSMENT: A 26-year-old female with a history of multiple sclerosis and seizure disorder, had just recently been discharged from hospital for treatment for acute exacerbation, presents again with complaint of worsening symptoms such that she cannot ambulate and she is having moderate amount of pain. Due to these findings, we will place her in for observation for further evaluation and management. 1. Possible multiple sclerosis exacerbation, recurrent. 2. Leukocytosis. Recently treated with Solu-Medrol. 3. Chronic pain syndrome. PLAN: 1. We will admit patient to medical floor. 2. We will give patient adequate pain control. 3. We will consult Neurology. She needs to be started back on her Solu-Medrol. 4. We will put patient on DVT prophylaxis with SCDs. 5. We will continue to follow and reassess.
[2017-02-01] MEDS: ZOFRAN IV PRN ×5 (08:55→23:24)
[2017-02-01] MEDS: VIMPAT PO SCH ×2 (09:07→19:59)
[2017-02-01] MEDS ORDERED: SOLU-MEDROL IV ONE (10:42)
[2017-02-01] MEDS ORDERED: SOLU-MEDROL ONE (10:50)
[2017-02-01] MEDS: PATIENT'S OWN MED INJ SCH (13:15)
[2017-02-01] MEDS ORDERED: SOLU MEDROL IV ONE (15:59)
[2017-02-01] MEDS ORDERED: NS IV ONE (15:59)
--- NOTE | 2017-02-01 18:01 | CONSULTATION ---
DATE OF CONSULTATION: 02/01/2017 HISTORY OF PRESENT ILLNESS: Ms. Lorenzo reports having a stable course at home for a few days after discharge from the hospital last week. She then noticed "both legs felt like Jell-O" to the point that she could hardly stand. She returned to the hospital and was admitted. I believe that she completed 3 doses of IV Solu-Medrol 1000 mg daily while she was here last week. I believe that she has had another 1000 mg approximately of IV Solu-Medrol given this admission. There is reportedly previous diagnosis of multiple sclerosis. I do not have any records or documentation of that. She reports having diagnosis made about 2 months ago, treated with IV Solu- Medrol as an inpatient at [facility] with improvement. She was discharged and saw Dr. Root in [place] for MS management, started Betaseron about a month ago. She has followup with Dr. Root later this month. She reports having seizures beginning approximately a year ago. She was treated with levetiracetam and divalproex with incomplete control. Dr. Root added Vimpat last month and she has not had any more episodes. Lab work this admission includes CBC showing WBC count 17,000. There is nothing remarkable on the chemistry profile. We did not have urine drug screen this admission. Home medicines include methocarbamol which she reports has not been effective, Detrol, extended release levetiracetam 2000 mg at bedtime, Vimpat 200 mg b.i.d., divalproex extended release 1000 mg at bedtime, Adderall 5 mg 4 doses daily, hydrocodone/acetaminophen 5/325 as needed averaging several doses daily, Betaseron recently as above. Since admission, she has had several doses of hydromorphone. Vital signs record shows she has been afebrile. Heart rate has ranged from 90s to 120s. Blood pressures have been mostly 120s-140s systolic. On exam, Ms. Lorenzo is awake, alert, attentive. She demonstrates good power in the legs. The degree of power demonstrated fluctuates. I was not able to document any definite loss of muscle strength in the legs. Tone is equal in the legs. She reports diminished pinprick appreciation over both legs extending across the trunk to approximately T2 level bilaterally , some inconsistencies near the upper range of this deficit. I did not ask her to stand or walk. She continues to report very poor proprioception at the left great toe and now diminished proprioception at the right great toe. IMPRESSION: Reported weakness in the legs, numbness in the legs and trunk. This would be consistent with cervical or high thoracic myelopathy. She reports some bladder incontinence in recent days which would be consistent with a more likely lower motor neuron than purely upper motor neuron bladder problem. Interestingly, workup here has been unremarkable last week including MRI scan of the brain and cervical, thoracic, and lumbar spine. She believes that previous MRI scans showed lesions, possibly some active and enhancing lesions in the spine. I have requested records from [facility] to see if we can document previous findings. I would continue Solu-Medrol and physical therapy. I encouraged her to be patient and to not be out of bed without assistance. Thanks for asking me to see Ms. Lorenzo again. MTDD
[2017-02-01] MEDS ORDERED: DILAUDID IV ONE (18:09)
[2017-02-01] MEDS: DEPAKOTE ER PO SCH (19:59)
[2017-02-01] MEDS: KEPPRA XR PO SCH (22:20)
[2017-02-02] MEDS: DILAUDID IV PRN ×5 (02:19→21:47)
[2017-02-02] MEDS: ZOFRAN IV PRN ×6 (02:19→18:26)
[2017-02-02] MEDS ORDERED: SOLU-MEDROL IV SCH (07:45)
[2017-02-02 07:48] LABS: HEMOGLOBIN 12.5 g/dL (12.0-16.0); MCH 29.6 PG (27-31); MCHC 33.8 g/dL (33-37); MCV 87.5 FL (81-99); MPV 11.3 FL (7.4-10.4); RBC 4.23 XMIL (4.2-5.4)
[2017-02-02] MEDS ORDERED: SOLU-MEDROL 1,000 MG in NS 100 ML IV SCH (08:00)
[2017-02-02 08:18] LABS: AGAP 16; BUN 19 mg/dL (8-22); CALCIUM 9.2 mg/dL (8.8-10.2); CHLORIDE 98 mmol/L (98-107); COSMO 281; POTASSIUM 4.1 mmol/L (3.5-5.1); SODIUM 137 mmol/L (136-145); TCO2 23 mmol/L (25-35)
[2017-02-02] MEDS: VIMPAT PO SCH ×2 (08:25→20:03)
--- NOTE | 2017-02-02 10:43 | PROGRESS NOTE ---
DATE: 02/02/2017 Ms. Lorenzo believes she is a little bit stronger in the legs. She does not notice any new problems. She has tolerated another dose of IV Solu-Medrol. She believes that she is well enough to take care of herself at home with wheelchair and family assistance. She reports a phone call with Dr. Root's office this morning and her appointment is in just over 2 weeks. She hopes that might be moved up sooner. We did not get any report from [facility] regarding previous MRI findings. We will re-request that today. I discussed this with her this morning and she is absolutely certain scans were done as an inpatient at [facility]. I will order physical therapy before she leaves here to document her ability to take care of herself better at home. No other suggestions from a neurologic standpoint. I hope she will be able to have followup with Dr. Root before she has any more problems. Thanks for asking me to see Ms. Lorenzo.
[2017-02-02] MEDS ORDERED: NORCO-5 PO PRN (12:01)
[2017-02-02] MEDS ORDERED: DILAUDID IV ONE (13:16)
--- NOTE | 2017-02-02 14:18 | PROGRESS NOTE ---
DATE: 02/02/2017 SUBJECTIVE: This patient states that she is feeling a little bit better compared with admission but she is still having lower extremity weakness. Dr. Rashid evaluated this patient and he recommended that maybe she can get 1 more dose of Solu-Medrol and observe this patient afterwards. This patient has been followed as an outpatient by her neurologist and she will try to get her appointment sooner. She wants to be discharged tomorrow. She thinks that she can do okay at home with help. She denies nausea, vomiting, diarrhea, constipation. She does not have any eye problems or problems with her vision. OBJECTIVE: Vital Signs: Temperature 97.9 degrees, pulse 94, respiratory rate 16, blood pressure 134/77, oxygen saturation 95% on room air. HEENT: Head normocephalic. No trauma. PERRLA. Neck: Supple. No JVD. No masses. Central trachea. Chest: Clear to auscultation. No wheezing. No rales. Cardiovascular: RRR. No murmurs. No gallops. No rubs. Abdomen: Soft, nontender, nondistended. No hepatosplenomegaly. Extremities: No edema. No clubbing. No cyanosis. Neurological: The patient is alert. She has lower extremity weakness around 3/5 bilaterally. LABORATORY: WBC 17.9, hemoglobin 12.5, hematocrit 37, platelet 236,000. Sodium 137, potassium 4.1, chloride 98, bicarbonate 23, BUN 19, creatinine 0.6, glucose 179, calcium 9.2. ASSESSMENT AND PLAN: 1. Possible multiple sclerosis flare. She will get today a new dose of Solu-Medrol and I will stop the treatment after that. Probably this patient will be discharged tomorrow. She will get physical therapy today and I will talk to the social media senior associate to see if she can get physical therapy at home as well. 2. Leukocytosis. Likely related to Solu-Medrol treatment. 3. Hyperglycemia. Again, this is likely related to steroid use. 4. Chronic pain syndrome. Aware. This patient is on Celestine 5. We will continue to monitor.
[2017-02-02] MEDS ORDERED: PERCOCET-5 PO PRN (16:39)
[2017-02-02] MEDS: KEPPRA XR PO SCH (20:03)
[2017-02-02] MEDS: DEPAKOTE ER PO SCH (20:03)
[2017-02-03] MEDS: ZOFRAN IV PRN ×2 (00:04→08:35)
[2017-02-03] MEDS: DILAUDID IV PRN (06:53)
[2017-02-03 07:21] LABS: BASO% 0.1 % (0.0-0.8); HEMATOCRIT 36.3 % (37.0-47.0); HEMOGLOBIN 12.3 g/dL (12.0-16.0); IMM GRAN# 0.34 X1000 (0.0-0.04); IMM GRAN% 1.6 % (0.0-0.5); LYMPH# 1.46 X1000 (1.2-3.4); LYMPH% 6.7 % (20.5-51.1); MANUAL DIFF NEEDED? YES; MCH 29.6 PG (27-31); MCHC 33.9 g/dL (33-37); MCV 87.5 FL (81-99); MONO# 0.85 X1000 (0.11-0.59); MONO% 3.9 % (1.7-9.3); MPV 11.3 FL (7.4-10.4); NEUT% 87.7 % (42.2-75.2); PLT 251 X1000 (130-400); RBC 4.15 XMIL (4.2-5.4)
[2017-02-03 07:43] LABS: BANDS 6 % (0-1); LYMPHS 6 % (21-51)
[2017-02-03 07:46] LABS: AGAP 14; ALBUMIN 3.2 g/dL (3.5-5.0); ALKALINE PHOSPHATASE 100 U/L (32-104); BUN 24 mg/dL (8-22); CALCIUM 9.1 mg/dL (8.8-10.2); CHLORIDE 102 mmol/L (98-107); COSMO 285; GOT 18 U/L (10-30); GPT 45 U/L (10-36); POTASSIUM 4.2 mmol/L (3.5-5.1); SODIUM 139 mmol/L (136-145); TCO2 23 mmol/L (25-35); TOTAL BILIRUBIN 0.15 mg/dL (0.20-1.00); TOTAL PROTEIN 5.7 g/dL (6.3-8.3)
[2017-02-03] MEDS: VIMPAT PO SCH (08:22)
[2017-02-03] MEDS: PATIENT'S OWN MED INJ SCH (08:23)
[2017-02-03 08:40] VITALS: BP 133/89
--- NOTE | 2017-02-03 09:14 | PROGRESS NOTE ---
DATE: 02/03/2017 I observed Ms Lorenzo standing, maneuvering herself at the bedside very well. She reports she is doing well enough to be managed at home. I concur. We did receive some records from [facility], including scan reports. On 01/02/2017 brain MRI with and without contrast was reported to show "minimal scattered bifrontal subcortical white matter changes," but no evidence of enhancing lesion. Cervical spine, thoracic spine and lumbar spine MRI scans same date were all unremarkable, showing some typical minor degenerative changes, but no evidence of enhancing lesion to suggest multiple sclerosis exacerbation. Record shows earlier scan dated 12/23/2016 showed 2 mm right frontal subcortical focus with minimal enhancement and a few nonenhancing very small areas. Initial brain MRI done without contrast 06/22/2016 is reported to show right frontal hyperintensity, single focus. Scan with contrast 05/14/2016 showed no enhancement of that lesion. The 05/13/2016 noncontrast MRI of the thoracic spine, noncontrast MRI of the lumbar spine were unremarkable. Records indicate she had fluoroscopically-guided lumbar puncture 05/15/2016. We do not have the CSF reports. As above, I believe plans are for her to be discharged home. She has outpatient followup for neurology with Dr. Root in [place]. I do not have anything to add at this point. Thanks again for asking me to see Ms Lorenzo. MTDD
--- NOTE | 2017-02-03 10:50 | DISCHARGE SUMMARY ---
ADMISSION DATE: 02/01/2017 DISCHARGE DATE: 02/03/2017 PERTINENT PROCEDURES: None. CONSULTATIONS: Dr. Harley Rashid with neurology. DISCHARGE DIAGNOSES: 1. Questionable multiple sclerosis flare up. The patient was given intravenous steroids. Worked with physical therapy. Social service is working to see if patient qualifies for home health with physical therapy. 2. Leukocytosis secondary to intravenous steroids. 3. Hyperglycemia secondary to steroid use. 4. Chronic pain syndrome. Aware. Continue with pain management. HOSPITAL COURSE: Briefly, Ms. Lorenzo is a 26-year-old female with a history of MS, seizures, PTSD. She had recently been discharged from the hospital for treatment of acute exacerbation of her multiple sclerosis. She came to the ED with complaints that she was unable to walk. Her legs were weak and wobbly. She felt like she did not receive her full treatment. She was evaluated in the ED. Unable to ambulate, moderate amount of discomfort in her legs. Due to presenting symptoms, the patient was admitted for possible multiple sclerosis exacerbation. Continued on pain control with a neurology consult. Started back on her Solu-Medrol as well as a PT consult. Dr. Rashid did a physical exam on the patient. She was awake, alert, attentive. Demonstrated good power in the legs. He did, however, state that the degree of power demonstrated fluctuates. Was not able to document any definite loss of muscle strength in the legs. Tone was equal. Did report diminished pinprick appreciation over both legs extending across the trunk to the T2 level bilaterally. Some inconsistencies in the upper range of the deficit so this was consistent with cervical or high thoracic myelopathy. Reported some bladder incontinence in recent days which is consistent with a more likely lower motor neuron then purely upper. Workup here was unremarkable last week including an MRI scan of the brain, cervical, thoracic, and lumbar spine. However, the patient reported that previous MRI scans done at [facility] showed some active and enhancing lesions in the spine. We have requested those records twice from [place]. The patient was tolerating her IV Solu-Medrol. She felt like she was well enough to take care of herself at home with a wheelchair and family assistance, and reports that she has spoken with Dr. Root's office. She has an appointment in just over 2 weeks but told that she might be moved up sooner. With physical therapy, in their notes, it stated that the patient is able to actively move both lower extremities but reports they feel heavy and Jello-O like. Both lower extremity strength bilaterally was 3/5. Fair maintained balance with hand support. student support services director has been consulted for assistance with physical therapy as well as home health. The patient has called the staff this morning very tearful, wanting to be discharged home. The patient was kept one more day yesterday. Dr. Tejada feel she is appropriate for discharge home today after executive secretary social welfare can set up home health PT and possible DME with a wheelchair. VITAL SIGNS AT THE TIME OF DISCHARGE: Temperature is 98.3 degrees, heart rate 78, respirations 16, blood pressure 131/85, O2 96% on room air. DISCHARGE DIET: Regular. DISCHARGE MEDICATIONS: 1. Adderall 5 mg p.o. 4 times a day p.r.n. 2. Depakote ER 1000 mg p.o. at bedtime. 3. Detrol 2 mg p.o. daily. 4. Betaseron 25 mcg IM every other day. 5. Keppra XR 2000 mg p.o. at bedtime. 6. Vimpat 200 mg p.o. b.i.d. 7. Robaxin 750 mg p.o. t.i.d. p.r.n. 8. Percocet 5 one each p.o. q.6 hours p.r.n. pain. FOLLOWUP: The patient is being discharged home. She is to follow up with her neurologist, Dr. Matt Root, within the next 2 weeks for an appointment that she has already set up. She will also need to find and follow up with a primary care physician to a list that will be provided to her in the next 7-10 days. The patient can return to the ED for any worsening of symptoms. Again, executive secretary social welfare is working on home health with physical therapy and possible DME. Discharge time, 30 minutes. Dictated by MARGARITA Franco for Maynor Wan MD
== END 2017-02-03 10:30 | disposition home health service (06) | DRG 60 ==
LOC: ED 21:18 → EDIPHOLD 02-01 02:01 → 3N 02-01 12:05
PROVIDERS: ATTEND Internal Medicine
DX: G35 Multiple sclerosis (principal); R56.9 Unspecified convulsions; F17.210 Nicotine dependence, cigarettes, uncomplicated; F43.10 Post-traumatic stress disorder, unspecified; Z71.6 Tobacco abuse counseling; G89.4 Chronic pain syndrome; D72.829 Elevated white blood cell count, unspecified; R73.9 Hyperglycemia, unspecified; T38.0X5A Adverse effect of glucocorticoids and synthetic analogues, initial encounter; Z79.899 Other long term (current) drug therapy
CPT/HCPCS: 80048; 80053; 81001; 85025; 85027; 96374; 96375; 96376; J1170; J2405; J2930; 97116-GP

== ENCOUNTER 2017-03-24 19:33 | Inpatient (IN) ==
--- NOTE | 2017-03-24 22:07 | PROVIDER DOCUMENTATION ---
HPI-Neurological Disorder - General Chief Complaint: Generalized Pain Stated Complaint: MS ISSUE Time Seen by Provider: 03/24/17 21:35 Source: patient Allergies/Adverse Reactions: Patient Allergies Allergy/AdvReac Type Severity Reaction Status Date / Time Sulfa (Sulfonamide Allergy Severe ANAPHYLAXIS Verified 03/24/17 23:28 Antibiotics) Home Medications: Home Medication List Medication Instructions Recorded Confirmed Last Taken Type Dextroamphetamine/Amphetamine 5 mg PO 4XDAY PRN PRN 01/25/17 03/24/17 01/24/17 21:00 History [Adderall 5 mg Tablet] Divalproex E.r. [Depakote ER] 1,000 mg PO QHS 01/25/17 03/24/17 03/23/17 22:00 History Interferon Beta-1B [Betaseron] 25 mcg IM EVERY OTHER DAY 01/25/17 03/24/1703/23 18:00 History Lacosamide [Vimpat] 200 mg PO BID 01/25/17 03/24/17 03/24/17 12:00 History Levetiracetam E.r. [Keppra Xr] 2,000 mg PO HS 01/25/17 03/24/17 03/23/17 22:00 History Tolterodine [Detrol] 2 mg PO DAILY 01/25/17 03/24/17 03/24/17 08:00 History - History of Present Illness-Neuro Nature of Presenting Problem: 27 year old WF presents with c/o LUE/LLE weakness with numbness. pt reports onset was this morning. pt reports she has MS and this weakness feels like a flare. pt reports she has been taking all her medications as prescribed. associated symptoms are headache, right frontal, dull, non-radiating, denies trauma/injury. pt reports she has been admitted several times in the last few months for MS flare. Headache Location: reports: frontal Severity: reports: mild Onset/Duration: reports: this morning Timing: reports: still present, constant, getting worse Context: reports: none. denies: found unresponsive by senior living staff, found unresponsive by bystander, found unresponsive by family, low blood sugar, recent/heavy alcohol intake, drug abuse, overdose, head injury, recent infection , fever, impaired speech, paresthesia, facial droop, falling, seizure activity, other Character of Altered Mental Status: reports: N/A Any recent trauma/injury?: reports: none Character of Deficits: reports: new weakness (acute exacerbation of MS) New weakness or altered sensation location:: reports: LUE, LLE Cognitive Baseline: alert, oriented x3 Gait Baseline: walks without assistance Associated Symptoms: reports: numbness in legs/feet, tingling in legs/feet Similar Symptoms Previously?: Yes Recently seen or treated by another doctor?: Yes Review of Systems - Adult - REVIEW OF SYSTEMS - ADULT Constitutional: reports: no symptoms reported. denies: chills, fever, fatique Eyes: reports: no symptoms reported. denies: discharge, blurred vision, double vision, redness Ears, Nose, Mouth & Throat: reports: no symptoms reported. denies: ear discharge, ear pain, nose pain, loose teeth, throat pain, throat swelling Cardiovascular: reports: no symptoms reported. denies: chest pain, palpitations , syncope Respiratory: reports: no symptoms reported. denies: chronic cough, cough, shortness of breath, wheezing Gastrointestinal: reports: no symptoms reported. denies: abdominal pain, diarrhea, nausea, vomiting Genitourinary: reports: no symptoms reported. denies: dysuria, hematuria, urgency Musculoskeletal: reports: see HPI, muscle weakness (LUE/LLE). denies: bone pain , back pain, frequent leg cramps, muscle aches, neck pain Integumentary: reports: no symptoms reported. denies: itching, rash, skin sores /ulcer Neurological: reports: see HPI, headache/migraines, numbness. denies: ataxia, dizziness/vertigo, loss of balance, paresthesia, seizure, slurred speech, syncope, tremors Psychiatric: reports: no symptoms reported Endocrine: reports: no symptoms reported Hematologic/Lymphatic: reports: no symptoms reported Allergic/Immunologic: reports: no symptoms reported All Other Systems: Reviewed and Negative Past History - Adult - PAST MEDICAL HISTORY-ADULT Review of Records: reports: Old Records Reviewed, Nursing Assessment Review, Medications Reviewed, Social history reviewed & non-contributory. Major Childhood Illnesses: reports: denies history Cardiovascular: reports: denies history Respiratory: reports: denies history Gastrointestinal: reports: denies history Obstetrical/Gynecological: reports: denies history Genitourinary: reports: denies history Musculoskeletal: reports: denies history Neurological: reports: Multiple Sclerosis, Seizures/Epilepsy Psychiatric: reports: denies history, ptsd Endocrine/Immune: reports: denies history Other Conditions: reports: denies history - PRIOR SURGERIES/PROCEDURES Surgical/Procedure History: reports: - IMMUNIZATION STATUS Childhood Immunizations: See Nurse Assessment Flu Vaccine: See Nurse Assessment - FAMILY HISTORY Family History: reviewed, not pertinent - SOCIAL HISTORY Smoking: cigarettes Provider spent 3-5 mins advising pt. on dangers of tobacco.: Discussed manners to quit use, and f/u contacts for add'l counseling. Substance Use: none/never Alcohol Use Frequency: never Physical Exam- Neurological - Physical Exam-Neuro Initial Vital Signs Reviewed: Yes General Appearance: appears well, alert, no apparent distress. negative: mild distress, moderate distress, severe distress, lethargic, slow to respond, obtunded, combative Eye Exam: bilateral eye: normal inspection, PERRL, EOMI HENMT: normocephalic/atraumatic, moist mucous membranes Head Injury: no evidence of injury. negative: active bleeding, Hernandez's Sign, contusions, ecchymosis, flap, lacerations, raccoon eyes, swelling, tenderness Neck: non-tender, full range of motion, supple, normal inspection. negative: C- spine tenderness, limited range of motion, tender lateral, tender midline Respiratory: chest non-tender, lungs clear, normal breath sounds, no pleuratic chest pain, no respiratory distress, no accessory muscle use. negative: respiratory distress, decreased breath sounds, accessory muscle use, crackles, rales, rhonchi, stridor, wheezing Cardiovascular: normal peripheral pulses, regular rate, rhythm. negative: no edema, no gallop Abdominal Exam: normal bowel sounds, non tender, soft. negative: distended, guarding, rigid, rebound, tenderness, hernia, mass Lymphatic: no adenopathy Peripheral Pulses: radial (R): 3+, radial (L): 3+, dorsalis-pedis (R): 3+, dorsalis-pedis (L): 3+ Extremity: normal range of motion, non-tender, normal inspection, no pedal edema , no calf tenderness, normal capillary refill. negative: normal gait (slight limp, favoring the right side, left sided weakness), pelvis stable, abnormal NV exam, calf tenderness, deformity, erythema, inflammation, joint effusion, pulse deficit, pedal edema, slow capillary refill, swelling, tenderness wine master Exam: normal hearing, normal speech, PERRL. negative: abnormal eye position , abnormal gag reflex, abnormal pupil position, abnormal speech, facial asymmetry, facial droop, facial paresthesias, facial weakness, gaze palsy, tongue deviation to R, tongue deviation to L Coordination/Gait: normal finger to nose, negative Romberg's sign, abnormal gait . negative: normal gait Motor/Sensory: no pronator drift, sensory deficit (pt reports numbness to LUE/ LLE), weak motor strength LUE, weak motor strength LLE. negative: no motor deficit, no sensory deficit, pronator drift (R), pronator drift (L), weak motor strength RUE, weak motor strength RLE Neurologic: wine master II-XII nml as tested, grossly normal, motor weakness (left side) , negative romberg's sign. negative: no motor/sensory deficits, abnormal cerebellar tests, abnormal wine master II-XII, abnormal gait, aphasia, EOM palsy, facial droop, focal weakness, sensory deficit Integumentary: normal color, normal turgor, warm/dry. negative: pallor, petechiae, purpura, rash Psych/Mental Status: normal mood/affect, normal thought content, normal thought process, oriented x 3 - Glascow Coma Scale Best Eye Response: (4) open spontaneously Best Verbal Response: (5) oriented Best Motor Response: (6) obeys commands Total Glascow Score: 15 Progress - PLAN OF CARE/RESULTS Progress/Plan/Lab Results: Vital Signs - 8 hr 03/24/17 19:36 03/25/17 02:11 Temperature 98.4 F 97.7 F Pulse Rate 123 H 87 Respiratory Rate 20 20 Blood Pressure 121/83 114/72 O2 Sat by Pulse Oximetry 100 99 Laboratory Results - last 24 hr 03/24/17 03/24/17 03/24/17 23:40 23:40 23:40 WBC 13.80 H RBC 5.06 Hgb 15.6 Hct 44.5 MCV 87.9 MCH 30.8 MCHC 35.1 RDW Std Deviation 13.1 Plt Count 342 MPV 11.8 H Immature Gran % (Auto) 0.2 Neut % (Auto) 64.8 Lymph % (Auto) 26.7 [place] % (Auto) 7.0 Eos % (Auto) 1.1 Baso % (Auto) 0.2 Immature Gran # (Auto) 0.03 Neut # (Auto) 8.94 H Lymph # (Auto) 3.68 H [place] # (Auto) 0.97 H Eos # (Auto) 0.15 Baso # (Auto) 0.03 Sodium 143 Potassium 3.6 Chloride 103 Carbon Dioxide 25 Anion Gap 15 BUN 8 Creatinine 0.8 Estimated GFR/1.73 m2 > 60 BUN/Creatinine Ratio 10 Glucose 91 Calculated Osmolality 283 Calcium 9.7 Total Bilirubin 0.42 AST 29 ALT 43 H Alkaline Phosphatase 141 H Total Protein 7.5 Albumin 4.4 Globulin 3.1 Albumin/Globulin Ratio 1.4 Urine Source CLEAN CATCH Urine Color YELLOW Urine Turbidity HAZY Urine pH 6.0 Ur Specific [place] 1.027 Urine Protein TRACE A Ur Glucose (Stick) NEGATIVE Ur Ketones (Stick) TRACE A Urine Blood NEGATIVE Urine Nitrite NEGATIVE Urine Bilirubin NEGATIVE Urobilinogen Dipstick NORMAL Urine Leukocytes NEGATIVE Urine WBC (Auto) <10 Urine RBC (Auto) TNTC A U Epithel Cells (Auto) <10 Urine Bacteria (Auto) NEGATIVE Urine Crystals NONE SEEN Small Round Cells Not Reportable Urine Casts Not Reportable Urine Yeast-like Cells Not Reportable Orders Category Date Time Status UA [ED: Urine Bedside] ORDERED Care 03/24/17 22:04 Active HEAD W/O CONTRAST [CT] Stat Exams 03/24/17 22:04 Taken CBC WITH DIFF [HEME] Stat Lab 03/25/17 00:21 Completed CMP [COMPREHENSIVE METABOLIC PANEL] [CHEM] Stat Lab 03/25/17 00:21 Completed UA [UA NIMS W/REFLEX CULT] [URINALYSIS] Stat Lab 03/25/17 00:21 Completed URINE MANUAL MICROSCOPIC [URINALYSIS] Stat Lab 03/24/17 23:40 Completed 0.9% Sodium Chloride Inj [Ns] 1,000 ml Med 03/24/17 23:56 Discontinued IV 999 mls/hr 0.9% Sodium Chloride Inj [Ns] 250 ml Med 03/25/17 02:00 Active Methylprednisolone Sod Succ [Solu-Medrol] 1,000 mg IV 500 mls/hr Ketorolac [Toradol] Med 03/25/17 00:53 Discontinued 30 mg IV NOW ONE Methylprednisolone Sod Succ [Solu-Medrol] Med 03/25/17 00:58 Discontinued 1,000 mg IV NOW ONE Metoclopramide [Reglan] Med 03/25/17 00:53 Discontinued 10 mg IV NOW ONE Morphine Med 03/24/17 23:56 Discontinued 4 mg IV NOW ONE Morphine Med 03/25/17 01:32 Discontinued 4 mg IV NOW ONE Ondansetron [Zofran] Med 03/24/17 23:57 Discontinued 4 mg IV NOW ONE Laboratory Tests 03/24/17 03/24/17 03/24/17 23:40 23:40 23:40 WBC 13.80 H RBC 5.06 Hgb 15.6 Hct 44.5 MCV 87.9 MCH 30.8 MCHC 35.1 RDW Std Deviation 13.1 Plt Count 342 MPV 11.8 H Immature Gran % (Auto) 0.2 Neut % (Auto) 64.8 Lymph % (Auto) 26.7 [place] % (Auto) 7.0 Eos % (Auto) 1.1 Baso % (Auto) 0.2 Immature Gran # (Auto) 0.03 Neut # (Auto) 8.94 H Lymph # (Auto) 3.68 H [place] # (Auto) 0.97 H Eos # (Auto) 0.15 Baso # (Auto) 0.03 Sodium 143 Potassium 3.6 Chloride 103 Carbon Dioxide 25 Anion Gap 15 BUN 8 Creatinine 0.8 Estimated GFR/1.73 m2 > 60 BUN/Creatinine Ratio 10 Glucose 91 Calculated Osmolality 283 Calcium 9.7 Total Bilirubin 0.42 AST 29 ALT 43 H Alkaline Phosphatase 141 H Total Protein 7.5 Albumin 4.4 Globulin 3.1 Albumin/Globulin Ratio 1.4 Urine Source CLEAN CATCH Urine Color YELLOW Urine Turbidity HAZY Urine pH 6.0 Ur Specific [place] 1.027 Urine Protein TRACE A Ur Glucose (Stick) NEGATIVE Ur Ketones (Stick) TRACE A Urine Blood NEGATIVE Urine Nitrite NEGATIVE Urine Bilirubin NEGATIVE Urobilinogen Dipstick NORMAL Urine Leukocytes NEGATIVE Urine WBC (Auto) <10 Urine RBC (Auto) TNTC A U Epithel Cells (Auto) <10 Urine Bacteria (Auto) NEGATIVE Urine Crystals NONE SEEN Small Round Cells Not Reportable Urine Casts Not Reportable Urine Yeast-like Cells Not Reportable Reviewed radiology, labs, H&P with Dr. Jose Waters, agrees with plan of care, treatment, admission. Result Diagrams: 03/24/17 23:40 03/24/17 23:40 - CT/MRI 1 CT Study: Head Impression: Normal (see radiology report.) - CONSULTS/PCP/HOSPITALIST Notification #1 *Consult/PCP/Hospitalist*: Dr. Sky Time Discussed: 00:57 Reason/Comments: MS flare Consult Disposition: Will see in ED, Admit Departure - Departure Time of Disposition Decision: 00:49 DIAGNOSIS: Exacerbation of multiple sclerosis, Multiple sclerosis Disposition: ADMITTED INPATIENT 09 Certified Medical Emergency: Emergent Condition: Stable Referrals and Follow-Ups: None,PCP [Primary Care Provider] - - Critical Care Note This patient required my direct personal management.: No Attestation - Physician/ CARRIE Attestation Patient care was provided by Advanced Practice Provider:: Yes Advanced Practice Provider:: Lan Mosquera Advanced Practice Provider documentation review:: The Mid-level provider documentation, treatment plan and medical decision making was reviewed by the physician who agrees with all treatment and medical decision making by the MLP.
[2017-03-24] MEDS ORDERED: NS 1,000 ML IV ONE (23:56)
[2017-03-24] MEDS ORDERED: MORPHINE IV ONE (23:56)
[2017-03-24] MEDS ORDERED: ZOFRAN IV ONE (23:57)
[2017-03-25 00:28] LABS: MANUAL DIFF NEEDED? NO; URINE CULTURE NEEDED? NO; URINE SOURCE CLEAN CATCH
[2017-03-25 00:30] LABS: BASO% 0.2 % (0.0-0.8); EOS# 0.15 X1000 (0.0-0.7); EOS% 1.1 % (0.0-10.0); HEMATOCRIT 44.5 % (37.0-47.0); HEMOGLOBIN 15.6 g/dL (12.0-16.0); IMM GRAN# 0.03 X1000 (0.0-0.04); IMM GRAN% 0.2 % (0.0-0.5); LYMPH# 3.68 X1000 (1.2-3.4); LYMPH% 26.7 % (20.5-51.1); MCH 30.8 PG (27-31); MCHC 35.1 g/dL (33-37); MCV 87.9 FL (81-99); MONO# 0.97 X1000 (0.11-0.59); MPV 11.8 FL (7.4-10.4); NEUT% 64.8 % (42.2-75.2); PLT 342 X1000 (130-400); RBC 5.06 XMIL (4.2-5.4)
[2017-03-25 00:31] LABS: BILIRUBIN URINE NEGATIVE (NEGATIVE); BLOOD URINE NEGATIVE (NEGATIVE); COLOR YELLOW; GLUCOSE URINE NEGATIVE (NEGATIVE); LEUKOCYTES URINE NEGATIVE (NEGATIVE); NITRITE URINE NEGATIVE (NEGATIVE); PROTEIN URINE TRACE mg/dL (NEGATIVE); SP GRAVITY URINE 1.027; TURBIDITY URINE HAZY (CLEAR); URINE MICRO REVIEW NEEDED? YES; UROBILINOGEN URINE NORMAL (NORMAL)
[2017-03-25 00:45] LABS: AGAP 15; ALBUMIN 4.4 g/dL (3.5-5.0); ALKALINE PHOSPHATASE 141 U/L (32-104); BUN 8 mg/dL (8-22); CALCIUM 9.7 mg/dL (8.8-10.2); CHLORIDE 103 mmol/L (98-107); COSMO 283; GOT 29 U/L (10-30); GPT 43 U/L (10-36); POTASSIUM 3.6 mmol/L (3.5-5.1); SODIUM 143 mmol/L (136-145); TCO2 25 mmol/L (25-35); TOTAL BILIRUBIN 0.42 mg/dL (0.20-1.00); TOTAL PROTEIN 7.5 g/dL (6.3-8.3)
[2017-03-25 00:51] LABS: UR EPITHELIAL CELLS <10 /HPF (<10); URINE BACTERIA NEGATIVE /HPF; URINE CRYSTALS NONE SEEN; URINE RBC TNTC /HPF (<10); URINE WBC <10 /HPF (<10)
[2017-03-25] MEDS ORDERED: TORADOL IV ONE (00:53)
[2017-03-25] MEDS ORDERED: REGLAN IV ONE (00:53)
[2017-03-25] MEDS ORDERED: SOLU-MEDROL IV ONE (00:58)
[2017-03-25] MEDS ORDERED: MORPHINE IV ONE (01:32)
[2017-03-25] MEDS ORDERED: SOLU MEDROL IV ONE (02:00)
[2017-03-25] MEDS ORDERED: NS IV ONE (02:00)
[2017-03-25] MEDS ORDERED: DILAUDID IV PRN (03:16)
[2017-03-25] MEDS ORDERED: DILAUDID IV ONE ×2 (04:41→16:17)
[2017-03-25] MEDS: NS 1,000 ML IV SCH ×2 (04:54→19:06)
--- NOTE | 2017-03-25 06:11 | Diag Imaging Result Document ---
PROCEDURE NAME: HEAD W/O CONTRAST - 03/24/2017 CT BRAIN WITHOUT CONTRAST: COMPARISON: 01/25/2017. FINDINGS: No parenchymal hemorrhage. No epidural or subdural hematoma. No subarachnoid hemorrhage. No mass identified on this noncontrasted exam. No hydrocephalus. No sinus opacification and no air-fluid levels. IMPRESSION: No hemorrhage. Negative brain CT without contrast. A preliminary report was given at 11:07 p.m.
[2017-03-25] MEDS: VIMPAT PO SCH ×3 (07:47→21:05)
[2017-03-25] MEDS: DILAUDID IV PRN ×6 (07:48→22:08)
[2017-03-25] MEDS: DETROL LA PO SCH (08:04)
[2017-03-25] MEDS: ZOFRAN IV PRN ×2 (13:45→22:17)
--- NOTE | 2017-03-25 15:21 | CONSULTATION ---
DATE OF CONSULTATION: 03/25/2017 PATIENT LOCATION: Room 357. HISTORY OF PRESENT ILLNESS: Ms. Lorenzo reports feeling a little bit weaker in recent days than baseline but she was getting along pretty well. Then, on trying to get out of bed early yesterday morning, she noticed left arm and leg weakness much more than baseline. There was not incontinence. There was no history of head or spine injury. She had numbness in the left limbs also. She came to the hospital and was admitted. She has been in the hospital numerous times in recent months. She has had extensive workup here and in [place]. Dr. Root in [place] is her treating neurologist. She had an appointment with him rescheduled recently and she has not seen Dr. Root since we initially saw her here a few months ago. Workup this admission includes labs showing WBC count 13,800. She has had chronic elevated WBC generally higher than the current value over the last few months. Noncontrast CT of the head late yesterday is reported unremarkable. Previous workup here includes brain MRI with and without contrast 01/25/2017 reported unremarkable. Cervical, lumbar, and thoracic MRI done with and without contrast 01/26/2017 all unremarkable. We had records from [facility] reviewed on her admission here last month showing an isolated brain lesion. Home medicines include levetiracetam ER 2000 mg at bedtime, Vimpat 200 mg b.i.d. , divalproex ER 1000 mg at bedtime. She does not report recent seizure. Other medicines are Detrol and Adderall. For MS management, she continues Betaseron. PHYSICAL EXAMINATION: On exam now, she is awake, alert, attentive. Her voice is feeble. She has good power in the right limbs. There is some fluctuating effort with testing voluntary motor power in the left limbs. With repeated testing, I was not able to determine a definite motor deficit. Tone is equal in the limbs. Reflexes are 3+ at the knees and ankles, 2+ symmetrically at the wrists. Plantar response is silent bilaterally. She reports diminished pinprick and light touch appreciation across the left limbs and trunk extending to the neck with symmetric pinprick appreciation across the face. I did not test her gait. IMPRESSION: Subjective left limb weakness and numbness. There is still not a definite reproducible objective neurologic finding. The report that her numbness and weakness are ipsilateral is not typical of myelopathy. Therefore, negative brain CT is reassuring. We might consider repeating her brain MRI electively, not urgent. Again, I encouraged her to be careful if she is up, to try to avoid falling and injury, and to re-establish contact with Dr. Root's office. I do not have any other suggestion right now. Thanks for asking me to see Ms. Lorenzo again. cc: MD VENKATESH Stone III
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
[2017-03-25] MEDS ORDERED: MELATONIN PO SCH (21:00)
[2017-03-25] MEDS ORDERED: KEPPRA XR PO SCH (21:00)
[2017-03-25] MEDS ORDERED: DEPAKOTE ER PO SCH (21:00)
[2017-03-26] MEDS: DILAUDID IV PRN ×4 (01:06→12:28)
[2017-03-26] MEDS ORDERED: NS IV SCH (02:00)
[2017-03-26] MEDS ORDERED: SOLU MEDROL IV SCH (02:00)
--- NOTE | 2017-03-26 02:25 | Diag Imaging Result Document ---
PROCEDURE NAME: MRI BRAIN W W/O CONTRAST - 03/25/2017 MRI BRAIN WITHOUT AND WITH CONTRAST: TECHNIQUE: Images are obtained prior to and following Omniscan administration. COMPARISON: Compared with 01/26/2017. FINDINGS: There is a 7 mm signal abnormality in subcortical white matter at the temporoparietal junction on the right. This measured 6 mm on the previous exam. Considering the clinical history of multiple sclerosis, this may represent a demyelinating lesion, although it is not at the typical periventricular location of multiple sclerosis lesions. There is no other substantial signal abnormality identified. The diffusion-weighted images show no areas of restricted diffusion (no evidence of acute infarct). There is no abnormal enhancement identified. IMPRESSION: Single 7 mm white matter signal abnormality at subcortical white matter at right temporoparietal junction. While this appears to have enlarged slightly compared to 01/26/2017, there is no associated abnormal enhancement seen. This may represent a demyelinating lesion. There are no other lesions identified. [facility]
[2017-03-26] MEDS ORDERED: SOLU-MEDROL IV SCH (02:30)
--- NOTE | 2017-03-26 02:35 | Diag Imaging Result Document ---
PROCEDURE NAME: MRI C SPINE W/WO CONTRAST - 03/25/2017 MRI OF THE CERVICAL SPINE WITHOUT AND WITH CONTRAST: TECHNIQUE: Sagittal and axial images are obtained prior to and following Omniscan administration. COMPARISON: 01/26/2017. FINDINGS: There are mild central disk bulges at C5-6 and C6-7. There is no prominent disk protrusion identified. There is no spinal stenosis or spinal cord compression identified. There is no spinal cord edema identified. There is no myelomalacia identified. There is no spinal cord lesion identified. There is no abnormal enhancement identified. IMPRESSION: 1. Mild central disk bulges at C5-6 and C6-7. 2. No evidence of spinal cord lesion.
[2017-03-26] MEDS: NS 1,000 ML IV SCH ×2 (05:37→11:34)
--- NOTE | 2017-03-26 06:58 | HISTORY AND PHYSICAL ---
PRIMARY CARE PHYSICIAN: Roxy Alvarez MD CHIEF COMPLAINT: Left-sided weakness. HISTORY OF PRESENTING ILLNESS: A 27-year-old female with a history of multiple sclerosis and PTSD had presented to emergency department with complaint of left-sided weakness that started about a day ago. She has had a previous multiple sclerosis flare up and she states that it resembles this. She was evaluated in the ER, and due to her presenting symptoms, it was thought that she would need hospitalization for further management. She was started on high dose of Solu-Medrol and she will be admitted for further management. At the time of my examination, she had denied any headache, vision changes, fevers, chills, chest pain, shortness of breath, hemoptysis or weight changes. Just complained of left-sided weakness. PAST MEDICAL HISTORY: 1. Multiple sclerosis. 2. PTSD. 3. Pseudotumor cerebri. PAST SURGICAL HISTORY: None. ALLERGIES: Sulfa. CURRENT MEDICATIONS: Listed in the MAR. SOCIAL HISTORY: Smoking a pack for the past 7 years. Denies any history of alcohol or illicit drug use. FAMILY HISTORY: No history of coronary disease. REVIEW OF SYSTEMS: [employer] systems is as in HPI. Other systems negative. PHYSICAL EXAMINATION: GENERAL: Cooperative, friendly female. She is resting comfortably now. VITAL SIGNS: Temperature 98.4 degrees, pulse 122, respirations 20, blood pressure 121/83, saturating 100%. HEENT: Atraumatic, normocephalic. Extraocular movements intact. PERRLA. NECK: Supple. CHEST: Clear to auscultation. CARDIOVASCULAR: Regular rate and rhythm. ABDOMEN: Soft. Positive bowel sounds. EXTREMITIES: No edema. NEURO: She is awake, alert, oriented x3. Speech is intact. Strength 2/5 left upper and lower extremity. : No bladder distention. SKIN: Warm. LABORATORIES AND STUDIES: WBC 13.80, hemoglobin 15.6, hematocrit 44.5, platelets 342,000 sodium 143, potassium 3.6, chloride 103, CO2 25, BUN is 8, creatinine 0.8, glucose is 91. ASSESSMENT: A 27-year-old female with a history of multiple sclerosis presents to emergency department with 1-day history of having a left-sided weakness. She states that resembles of previous MS flare. She will need hospitalization for further management. 1. Multiple sclerosis flare-up. 2. History of posttraumatic stress disorder. PLAN: 1. We will admit patient to medical floor. 2. We will start patient on methylprednisolone 1000 mg IV daily. 3. We will consult Neurology. 4. We will continue with gentle hydration. 5. Patient will resume her home medications. 6. We will put patient on DVT prophylaxis with SCDs. 7. We will continue to follow and reassess. cc: Myron Sky MD
[2017-03-26] MEDS: ZOFRAN IV PRN (07:07)
[2017-03-26 07:18] LABS: HEMATOCRIT 35.7 % (37.0-47.0); IMM GRAN# 0.04 X1000 (0.0-0.04); IMM GRAN% 0.2 % (0.0-0.5); LYMPH# 1.05 X1000 (1.2-3.4); LYMPH% 6.5 % (20.5-51.1); MANUAL DIFF NEEDED? YES; MCH 30.3 PG (27-31); MCHC 33.6 g/dL (33-37); MCV 90.2 FL (81-99); MONO# 0.15 X1000 (0.11-0.59); MONO% 0.9 % (1.7-9.3); MPV 11.9 FL (7.4-10.4); NEUT% 92.4 % (42.2-75.2); PLT 289 X1000 (130-400); RBC 3.96 XMIL (4.2-5.4)
[2017-03-26 07:36] LABS: AGAP 16; BUN 10 mg/dL (8-22); CALCIUM 8.9 mg/dL (8.8-10.2); CHLORIDE 106 mmol/L (98-107); COSMO 284; POTASSIUM 4.4 mmol/L (3.5-5.1); SODIUM 141 mmol/L (136-145); TCO2 19 mmol/L (25-35)
[2017-03-26 07:54] LABS: BANDS 2 % (0-1); LYMPHS 4 % (21-51)
[2017-03-26 09:13] VITALS: BP 128/72
[2017-03-26] MEDS: VIMPAT PO SCH (10:06)
[2017-03-26] MEDS: DETROL LA PO SCH (10:07)
[2017-03-26] MEDS ORDERED: NORCO-5 PO PRN (12:16)
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
[2017-03-27 09:48] LABS: HIV ANTIBODY SCREEN SEE COMMENTS
[2017-03-28 11:09] LABS: HEPATITIS PROFILE ACUTE SEE COMMENTS
== END 2017-03-26 16:18 | disposition home or self-care (01) ==
LOC: ED 19:33 → 3N 03-25 04:35 → SUATTDRO 03-25 04:35
PROVIDERS: ATTEND Internal Medicine